=== PATIENT | female | born 1975 | race Caucasian/White ===

== ENCOUNTER 2018-03-17 08:19 | Emergency (ER) | payer OTHER ==
[2018-03-17] MEDS ORDERED: Lactated Ringers 1,000 ML IV ONE (08:48)
[2018-03-17] MEDS ORDERED: Sodium Chloride 0.9% 10 ML Syringe FLUSH PRN (08:48)
[2018-03-17] MEDS ORDERED: Ondansetron 4 MG/2 ML SDV IVPUSH ONE (08:49)
[2018-03-17] MEDS ORDERED: diphenhydrAMINE 50 MG/ML SDV IVPUSH ONE (08:50)
[2018-03-17] MEDS ORDERED: Ketorolac 30 MG/ML SDV IVPUSH ONE (08:51)
--- NOTE | 2018-03-17 09:03 | EDM.PDOC ---
ED HPI GENERAL MEDICAL PROBLEM - General Chief Complaint: Headache Stated Complaint: HEADACHE,DIZZY,NAUSEA Time Seen by Provider: 03/17/18 08:41 Source of Information: Reports: Patient, Family, RN, RN Notes Reviewed History Limitations: Reports: No Limitations - History of Present Illness INITIAL COMMENTS - FREE TEXT/NARRATIVE: Patient presents to the ED at [facility] complaining of a headache that is located around the right eye. Patient states the headache started yesterday and has progressively gotten worse. She states she gets headache on/off and they are usually around her menstral cycles. She feels nauseated when her headache is at its worse. She has not vomited. She states it feels like the room is spinning when "the headache gets really bad." No focal neurological deficits. She states she usually will take Advil at home, which seems to help. No speech problems. No visual field disturbances. She states the headache is throbbing. Patient denies any neck or back pain. No recent head injuries or trauma. No recent head surgeries. Onset: Gradual Duration: Getting Worse, Waxing/Waning Location: Reports: Head Quality: Reports: Throbbing Severity: Moderate Improves with: Reports: Medication, Rest Worsens with: Reports: Movement Context: Denies: Activity, Sick Contact, Trauma Associated Symptoms: Reports: Nausea/Vomiting Treatments [employer]: Reports: NSAIDS Headache Pain Score (Numeric/FACES): 4 - Related Data Allergies Allergy/AdvReac Type Severity Reaction Status Date / Time No Known Allergies Allergy Verified 03/17/18 10:10 Home Meds: Home Meds . [No Known Home Meds] 05/21/16 [History] Past Medical History - Past Surgical History Musculoskeletal Surgical History: Reports: Other (See Below) Social & Family History - Caffeine Use Caffeine Use: Reports: None ED ROS GENERAL - Review of Systems Review Of Systems: See Below Constitutional: Denies: Fever, Chills, Weakness HEENT: Reports: Ear Pain (Left when headache is bad). Denies: Vision Change Respiratory: Denies: Shortness of Breath, Cough Cardiovascular: Denies: Chest Pain, Palpitations GI/Abdominal: Reports: Nausea. Denies: Abdominal Pain, Vomiting Skin: Reports: No Symptoms Neurological: Reports: Dizziness, Headache. Denies: Confusion, Numbness, Paresthesia, Tingling - Physical Exam Exam: See Below Exam Limited By: No Limitations General Appearance: Alert, No Apparent Distress Eye Exam: Bilateral Eye: EOMI, Normal Inspection, PERRL Ears: Normal External Exam, Normal Canal, Normal TMs Head Exam: Atraumatic, Normocephalic Neck: Supple, Non-Tender, Full Range of Motion Respiratory/Chest: No Respiratory Distress, Lungs Clear, Normal Breath Sounds Cardiovascular: Normal Peripheral Pulses, Regular Rate, Rhythm GI/Abdominal: Normal Bowel Sounds, Soft, Non-Tender Neuro Exam (Abbreviated): Alert, Oriented, No Motor/Sensory Deficits Skin Exam: Warm, Dry, Intact, Normal Color Course - Vital Signs Last Recorded V/S: Last Vital Signs Temp 36.3 C 03/17/18 08:25 Pulse 56 L 03/17/18 08:25 Resp 16 03/17/18 08:25 BP 135/87 03/17/18 08:25 Pulse Ox 100 03/17/18 08:25 - Orders/Labs/Meds Orders: Active Orders 24 hr Category Date Time Status Head wo Cont [CT] Stat Exams 03/17/18 08:46 Taken Sodium Chloride 0.9% [Saline Flush] Med 03/17/18 08:48 Active 10 ml FLUSH ASDIRECTED PRN Peripheral IV Insertion Adult [OM.PC] Routine Oth 03/17/18 08:48 Ordered Medication Orders Sodium Chloride (Saline Flush) 10 ml FLUSH ASDIRECTED PRN PRN Reason: Keep Vein Open Labs: Laboratory Tests 03/17/18 03/17/18 Range/Units 08:45 08:45 WBC 4.8 (4.0-10.0) x10^3/uL RBC 4.28 (4.00-5.50) x10^6/uL Hgb 13.9 (12.0-16.0) g/dL Hct 41.2 (33.0-47.0) % MCV 96.3 H (78.0-93.0) fL MCH 32.5 H (26.0-32.0) pg MCHC 33.7 (32.0-36.0) g/dL RDW Coeff of Jacqueline 12.0 (10.0-15.0) % Plt Count 194 (130-400) x10^3/uL Neut % (Auto) 54.9 (50.0-80.0) % Lymph % (Auto) 33.9 (25.0-50.0) % Harnett % (Auto) 7.9 (2.0-11.0) % Eos % (Auto) 3.3 (0.0-4.0) % Baso % (Auto) 0.0 L (0.2-1.2) % ESR 10 (0-21) mm/hr Sodium 143 (136-145) mmol/L Potassium 4.0 (3.5-5.1) mmol/L Chloride 108 H (98-107) mmol/L Carbon Dioxide 28 (21-32) mmol/L Anion Gap 11.0 (10-20) mmol/L BUN 18 (7-18) mg/dL Creatinine 0.9 (0.55-1.02) mg/dL Est Cr Clr Drug Dosing TNP Estimated GFR (MDRD) > 60 Glucose 92 (74-106) mg/dL Calcium 8.7 (8.5-10.1) mg/dL C-Reactive Protein < 0.2 (<=0.9) mg/dL Meds: Medications Generic Name Dose Route Start Last Admin Trade Name Freq PRN Reason Stop Dose Admin Sodium Chloride 10 ml 03/17/18 08:48 Saline Flush FLUSH ASDIRECTED PRN Keep Vein Open Discontinued Medications Generic Name Dose Route Start Last Admin Trade Name Freq PRN Reason Stop Dose Admin Diphenhydramine HCl 50 mg 03/17/18 08:50 03/17/18 09:02 Benadryl IVPUSH 03/17/18 08:51 50 mg ONETIME ONE Administration Lactated Ringer's 1,000 mls @ 999 mls/hr 03/17/18 08:48 03/17/18 08:45 Ringers, Lactated IV 03/17/18 09:48 999 mls/hr ONETIME ONE Administration Ketorolac Tromethamine 30 mg 03/17/18 08:51 03/17/18 09:04 Toradol IVPUSH 03/17/18 08:52 30 mg ONETIME ONE Administration Ondansetron HCl 4 mg 03/17/18 08:49 03/17/18 09:00 Zofran IVPUSH 03/17/18 08:50 4 mg ONETIME ONE Administration - Radiology Interpretation Free Text/Narrative:: CT Head: No plain evidence of acute intracranial process See scanned report in EMR CT Results Date: 03/17/18 CT Results Time: 10:12 Departure - Departure Time of Disposition: 10:18 Disposition: Home, Self-Care 01 Condition: Good Clinical Impression: Tension-type headache - Discharge Information *PRESCRIPTION DRUG MONITORING PROGRAM REVIEWED*: Not Applicable *COPY OF PRESCRIPTION DRUG MONITORING REPORT IN PATIENT MARGARETH: Not Applicable Instructions: Tension Headache, Adult Referrals: PCP,None [Primary Care Provider] - Forms: ED Department Discharge Additional Instructions: 1. Stay well hydrated and rest 2. Continue with Advil/Tylenol as needed 3. May benefit from treatment with a Physical therapy to rule out Vertigo 4. Take nausea pills every eight hours as needed 5. See your Primary as symptoms warrant 6. Call us with any questions or concerns - Problem List Review Problem List Initiated/Reviewed/Updated: Yes - My Orders Last 24 Hours: My Active Orders 03/17/18 08:46 Head wo Cont [CT] Stat 03/17/18 08:48 Sodium Chloride 0.9% [Saline Flush] 10 ml FLUSH ASDIRECTED PRN Peripheral IV Insertion Adult [OM.PC] Routine - Assessment/Plan Last 24 Hours: My Active Orders 03/17/18 08:46 Head wo Cont [CT] Stat 03/17/18 08:48 Sodium Chloride 0.9% [Saline Flush] 10 ml FLUSH ASDIRECTED PRN Peripheral IV Insertion Adult [OM.PC] Routine Assessment:: Tension-Type Headache Plan: Labs and xray reviewed and discussed with patient. I do not feel this is a true migraine of sorts. I believe this is more tension-type. Discussed treatment modalities with patient and . Continue with rest and hydrated. May alternate Tylenol/Advil as needed. Need to keep a headache diary and recognized and known triggers. Needs to develop a plan if headache are consistent with menstral cycles. Recommend establishing care with a PCP for any further testing or treatment. Patient may also benefit from an evaluation with Physical Therapy to rule out Vertigo.
[2018-03-17 09:16] LABS: CHLORIDE,CL 108 mmol/L (98-107); SODIUM,NA 143 mmol/L (136-145)
[2018-03-17 09:49] VITALS: BP 135/87
== END 2018-03-17 10:25 | disposition home or self-care (01) ==
LOC: VM.ED 08:19
DX: G44.209 Tension-type headache, unspecified, not intractable (principal)
CPT/HCPCS: 70450; 80048; 85025; 85652; 86140; 96361; 96374; 96375; 99284; J1200; J1885; J2405; J7120